=== PATIENT | male | born 1955 | race Caucasian/White ===

== ENCOUNTER 2016-06-11 09:01 | Inpatient (IN) | payer BC ==
[2016-06-11] VITALS (9 sets, daily range): BP systolic 99–129; BP diastolic 66–76; PULSE 85–97; TEMP 36.9–37.3; O2SAT 90–98; Ht 188 cm; Wt 98.1 kg
[~2016-06-11] VITALS: Ht 188 cm; Wt 98.1 kg
[~2016-06-11 09:01] MED LIST: ASPI1POW10 PO; CLON0.5T3 PO; CPR500 PO; ESCI1TAB10 PO; VALS-10 PO
[2016-06-11] MEDS ORDERED: DIPH1TAB PO (09:19)
--- NOTE | 2016-06-11 09:44 | EMERGENCY ROOM VISIT NOTE ---
History Report prepared by Marisol: Lexi Bond Under the Supervision of: Dr. Isabel Aguirre D.O. First contact with patient: 09:22 Chief Complaint: GI ASSESSMENT Stated Complaint: BLOOD IN STOOL Nursing Triage Summary: Pt c/o black and red bloody BM last night. Feeling week. Believes he fainted once. Cramping. 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 The patient states that he felt like he was going to have a normal bowel movement, but his stool was liquid and black in color. There were also some bright red spots. Afterwards, he felt very lightheaded and weak trying to get back to bed. He did not lose consciousness. Throughout the night, he had 3 more episodes of bloody diarrhea, most recently about 3 hours ago. He has never had similar episodes of bloody stool. He also complains that he was having cramps in the back of his thighs and calves intermittently throughout the night which kept him awake. Currently, he continues to feel weak and shaky, but denies any other complaints. He was feeling well throughout the day yesterday. The patient states that he takes salicylate powder at least 4 times a week, usually more, and occasionally up to 3 times in a day. He has a history of migraine headaches and the salicylate powder was the only thing that would help. The patient's only other significant GI history was a hospitalization for salmonella poisoning, although his current symptoms do not feel similar to that. He has had colonoscopies in the past, most recently about 2 years ago, and was told he does not need to have another for about 10 years. 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 A total of 10 systems reviewed and were otherwise negative. Past Medical & Surgical Medical Problems: (1) Hypertension (2) Melena (3) Pancolitis Family History FH: lung cancer Hypertension Social History Smoking Status: Never Smoker Alcohol Use: occasionally Drug Use: none Housing Status: lives with significant other Occupation Status: employed Current/Historical Medications Scheduled Clonazepam (Klonopin), 0.5 MG PO HS Diphenhydramine Hcl (Benadryl Allergy), 50 MG PO HS Escitalopram Oxalate (Lexapro), 20 MG PO DAILY Valsartan/Hctz (Diovan Hct 320MG/12.5MG), 1 TAB PO DAILY Scheduled PRN Rypilql-Orteakllizmsd-Tygxefdj (Goodys Extra Strength), 1 DOSE PO UD PRN for Headache Allergies Coded Allergies: No Known Allergies (Unverified , 06/11/16) Physical Exam Vital Signs Date Time Temp Pulse Resp B/P Pulse Ox O2 Delivery O2 Flow Rate FiO2 06/11/16 12:43 98 Room Air 06/11/16 11:02 104/74 06/11/16 09:06 36.3 126 18 105/70 98 Room Air Physical Exam HEENT: Head - normocephalic and atraumatic Pupils are equal, round, and reactive to light. Extraocular eye muscles are intact, and sclera are anicteric. Nose - moist nasal mucosa without discharge. Mouth - moist buccal mucosa. Oropharynx is nonerythematous and there is no tonsillar exudate or edema noted. Neck: Supple; no JVD, nuchal rigidity, cervical lymphadenopathy. Heart: Regular rate and rhythm. There is a normal S1 and S2 with no murmurs, clicks, or gallops appreciated. Lungs: Clear to auscultation bilaterally with no wheezes, rales, or rhonchi. Abdomen: Soft, completely nontender, nondistended, with good bowel sounds. There are no palpable pulsatile masses or hepatosplenomegaly. There is no guarding, rigidity, or rebound noted. Extremities: No evidence of cyanosis, clubbing, or edema. There are easily palpable peripheral pulses. Skin: Slightly pale and diaphoretic with good turgor and no rashes. Medical Decision & Procedures Laboratory Results Test 06/11/16 10:00 Prothrombin Time 10.7 SECONDS (9.0-12.0) Prothromb Time International Ratio 1.0 (0.9-1.1) Activated Partial Thromboplast Time 23.1 SECONDS (21.0-31.0) Partial Thromboplastin Ratio 0.9 Total Bilirubin 0.3 mg/dl (0.2-1) Direct Bilirubin < 0.1 mg/dl (0-0.2) Aspartate Amino Transf (AST/SGOT) 15 U/L (15-37) Alanine Aminotransferase (ALT/SGPT) 32 U/L (12-78) Alkaline Phosphatase 71 U/L (45-117) Total Creatine Kinase 155 U/L (39-308) Creatine Kinase MB 2.7 ng/ml (0.5-3.6) Creatine Kinase MB Ratio 1.7 (0-3.0) Total Protein 6.5 gm/dl (6.4-8.2) Albumin 3.6 gm/dl (3.4-5.0) Hepatitis C Antibody Screen NEG (NEG) Laboratory results per my review. Medications Administered Medications (Trade) Dose Ordered Sig/Cali Route Start Time Stop Time Status Last Admin Dose Admin Sodium Chloride (Nss 1000ml) 1,000 ml @ 999 mls/hr Q1H1M STAT IV 06/11/16 12:41 06/11/16 13:41 DC 06/11/16 13:04 999 MLS/HR ECG Indication: weakness Rate (beats per minute): 106 Rhythm: sinus tachycardia Findings: no acute ischemic change, no ectopy ED Course 0930: The patient was evaluated in room B10. A complete history and physical examination were performed. Nursing notes and previous electronic medical records were reviewed. IV lock was established and labs were drawn as above. 1120: Upon reevaluation, the patient was resting comfortably and has not had any more bloody bowel movements. However, the patient states that when he does stand up, he feels extremely lightheaded and near syncopal. I discussed findings and results with the patient. He verbalized agreement of the treatment plan. 1136: I spoke with Dr. Kennedy of the [facility] Hospitalist Service. The patient will be evaluated for further management and care. Medical Decision The patient is a 60 year old male who presents to the ED with a black and bloody stool. Differential diagnosis includes melena, upper GI bleeding, lower GI bleeding, anemia. Labs: White count of 11.8, hemoglobin 14.6, platelet count 261, coags are normal , BUN of 40, creatinine 1.3, glucose 128, LFTs are normal. This is a 60-year-old male patient who presents with melena and bright red bloody stools for the past 12 hours. The patient did have a near syncopal event earlier in the night. He still feels lightheaded upon standing. The patient admits to using aspirin/caffeine powder a couple of times a day for quite some time. This is used treat headaches. The salicylate use could be contributed to the patient's GI bleeding. I discussed the case with the [facility] hospitalist and they will evaluate for further management. Consults Time Called: 1125 Consulting Physician: Dr. Kennedy of the [facility] Hospitalist Service Returned Call: [phone] Kennedy of the [facility] Hospitalist Service. The patient will be evaluated for further management and care. Impression Primary Impression: Upper GI bleed Additional Impression: Near syncope Scribe Attestation The scribe's documentation has been prepared under my direction and personally reviewed by me in its entirety. I confirm that the note above accurately reflects all work, treatment, procedures, and medical decision making performed by me. Departure Information Dispostion Being Evaluated By Hospitalist Referrals Perez Mark M.D. (PCP) Patient Instructions My [facility] Health Problem Qualifiers
[2016-06-11 10:08] LABS: BASO % 0.2 %; BASO ABS # 0.02 K/uL (0-0.2); COMPLETE YES; EOS % 0.3 %; HEMATOCRIT 41.5 % (42-52); IG% 0.7 %; LYMPH % 18.5 %; LYMPH ABS # 2.19 K/uL (1.2-3.4); MEAN CELL VOLUME 95.8 fL (80-100); MEAN CORPUSCULAR HEMOGLOBIN 33.7 pg (25-34); MEAN CORPUSCULAR HGB CONC 35.2 g/dl (32-36); MEAN PLATELET VOLUME 9.4 fL (7.4-10.4); MONO % 6.2 %; NEUT % 74.1 %; PLATELET COUNT 261 K/uL (130-400); RED BLOOD COUNT 4.33 M/uL (4.7-6.1); WHITE BLOOD COUNT 11.85 K/uL (4.8-10.8)
[2016-06-11 10:22] LABS: PARTIAL THROMBOPLASTIN RATIO 0.9; PROTHROMBIN TIME (PATIENT) 10.7 SECONDS (9.0-12.0)
[2016-06-11 10:25] LABS: ALT/SGPT 32 U/L (12-78); BLOOD UREA NITROGEN 40 mg/dl (7-18); BUN/CREATININE RATIO 30.7 (10-20); CALCIUM 8.9 mg/dl (8.5-10.1); CARBON DIOXIDE 22 mmol/L (21-32); CHLORIDE 105 mmol/L (98-107); GLUCOSE 128 mg/dl (70-99); POTASSIUM 4.1 mmol/L (3.5-5.1); SODIUM 137 mmol/L (136-145)
[2016-06-11 10:28] LABS: ALKALINE PHOSPHATASE 71 U/L (45-117); AST/SGOT 15 U/L (15-37)
[2016-06-11 12:11] LABS: CKMB/CK RATIO 1.7 (0-3.0)
[2016-06-11] MEDS ORDERED: SODIUM CHLORIDE 0.9% 1000ML 1,000 ML IV STA (12:41)
[2016-06-11] MEDS ORDERED: PANTOprazole INJ 80 MG in DEXTROSE 5% 100ML IV SCH (13:30)
--- NOTE | 2016-06-11 13:42 | History and Physical ---
History & Physical Date & Time of Service: Jun 11, 2016 at 13:14 Chief Complaint: Blood In Stool Primary Care Physician: Perez Mark M.D. History of Present Illness Source: patient, family (sheyance), clinic records, hospital records Mr. Vallejo is a 60 y/o male with PMHx of HTN, Sleep Disorder, Migraine Headaches, Adult Stress Disorder, Salmonella Dysentery (Jan 2016) who presents to the ED for melanotic stools and BRBPR that started at midnight of 06/11/16. He reports feeling his normal self yesterday and went to bed without any acute complaints. At midnight he awoke because he felt the need to move his bowels and had loose tarry black BM with bright red block in the toilet water as well as interspersed in the melena. As he got up from the toilet and walked back to bed he was extremely lightheaded and felt like he was going to faint. He is not sure if he passed out when he was on the bed but did not fall in the attempts to reach the bed. He later had 3 more similar appearing melanotic stool with bright red blood. Each trip to the bathroom he developed the same symptoms of lightheadedness. Associated dyspnea on exertion. Aggravated with movement and walking but all associated symptoms relieved with rest. Associated generalized fatigue and shakiness. Denies chest pain. Reports utilizing Goody's powder for migraine headaches that he uses frequently. States he sometimes uses it 4 times a week and up to 3 times a day as this is the only thing that helps his headaches. Will use intermittent Ibuprofen but states it is not common to use. Denies further OTC medications or NSAIDs. Is not on any anti-coagulation therapy. Treated for Salmonella dysentery in January 2016 but reports complete resolution of those symptoms prior to today's onset. Last colonoscopy approx. 2 years ago without abnormalities per patient but he states he has had hemorrhoids in the past. Denies known history of PUD, bleeding disorders, or liver conditions. States he drinks 1-2 glasses of wine most days of the week. In the ED, patient is tachycardic in 120s but have reduced per my exam at 100. BPs stable but hypotensive at 104/74. Hgb noted at 14.6 with BUN 40. Initial cardiac enzymes negative. Discussed case with Dr. Inverso as patient is in NAD however hemodynamically unstable and symptomatic with exertion. Plan for possible EGD and will be admitted to telemetry for further evaluation and care. Past Medical/Surgical History Medical Problems: (1) Hypertension Status: Chronic Family History FH: lung cancer Hypertension Social History Smoking Status: Never Smoker Smokeless Tobacco Use: No Alcohol Use: occasionally (1-2 glasses of wine most days of week) Drug Use: none Occupational Status: employed Multi-Drug Resistant Organisms History of MDRO: No Allergies Coded Allergies: No Known Allergies (Unverified , 06/11/16) Home Medications Scheduled Clonazepam (Klonopin), 0.5 MG PO HS Diphenhydramine Hcl (Benadryl Allergy), 50 MG PO HS Escitalopram Oxalate (Lexapro), 20 MG PO DAILY Valsartan/Hctz (Diovan Hct 320MG/12.5MG), 1 TAB PO DAILY Scheduled PRN Kmmeozd-Owfcmjabmppff-Rozkluvy (Goodys Extra Strength), 1 DOSE PO UD PRN for Headache Review of Systems Constitutional: + weakness (generalized), No chills, No fever Respiratory: + dyspnea on exertion, No cough, No dyspnea at rest, No hemoptysis , No shortness of breath Cardiovascular: No chest pain Abdomen: + GI bleeding, + diarrhea, No nausea, No pain, No vomiting Musculoskeletal: No calf pain, No swelling Genitourinary - Male: No dysuria Endocrine: + fatigue Hematologic / Lymphatic: No abnormal bleeding/bruising, No clotting problems Integumentary: No rash Physical Exam Vital Signs Date Time Temp Pulse Resp B/P Pulse Ox O2 Delivery O2 Flow Rate FiO2 06/11/16 12:43 98 Room Air 06/11/16 11:02 104/74 06/11/16 09:06 36.3 126 18 105/70 98 Room Air General Appearance: WD/WN, no apparent distress Head: normocephalic, atraumatic Eyes: sclerae normal ENT: hearing grossly normal Neck: supple, no JVD, trachea midline Respiratory/Chest: lungs clear, normal breath sounds, no respiratory distress, no accessory muscle use Cardiovascular: no gallop, no murmur, + tachycardia Abdomen/GI: normal bowel sounds, non tender, soft Back: normal inspection Extremities/Musculoskelatal: no calf tenderness, normal capillary refill, no pedal edema Neurologic/Psych: alert, oriented x 3 Skin: no rash, + pallor Diagnostics Laboratory Results Results Past 24 Hours Test 06/11/16 10:00 Range/Units White Blood Count 11.85 4.8-10.8 K/uL Red Blood Count 4.33 4.7-6.1 M/uL Hemoglobin 14.6 14.0-18.0 g/dL Hematocrit 41.5 42-52 % Mean Corpuscular Volume 95.8 80-100 fL Mean Corpuscular Hemoglobin 33.7 25-34 pg Mean Corpuscular Hemoglobin Concent 35.2 32-36 g/dl Platelet Count 261 130-400 K/uL Mean Platelet Volume 9.4 7.4-10.4 fL Neutrophils (%) (Auto) 74.1 % Lymphocytes (%) (Auto) 18.5 % Monocytes (%) (Auto) 6.2 % Eosinophils (%) (Auto) 0.3 % Basophils (%) (Auto) 0.2 % Neutrophils # (Auto) 8.79 1.4-6.5 K/uL Lymphocytes # (Auto) 2.19 1.2-3.4 K/uL Monocytes # (Auto) 0.74 0.11-0.59 K/uL Eosinophils # (Auto) 0.03 0-0.5 K/uL Basophils # (Auto) 0.02 0-0.2 K/uL RDW Standard Deviation 46.8 36.4-46.3 fL RDW Coefficient of Variation 13.3 11.5-14.5 % Immature Granulocyte % (Auto) 0.7 % Immature Granulocyte # (Auto) 0.08 0.00-0.02 K/uL Prothrombin Time 10.7 9.0-12.0 SECONDS Prothromb Time International Ratio 1.0 0.9-1.1 Activated Partial Thromboplast Time 23.1 21.0-31.0 SECONDS Partial Thromboplastin Ratio 0.9 Sodium Level 137 136-145 mmol/L Potassium Level 4.1 3.5-5.1 mmol/L Chloride Level 105 98-107 mmol/L Carbon Dioxide Level 22 21-32 mmol/L Anion Gap 10.0 3-11 mmol/L Blood Urea Nitrogen 40 7-18 mg/dl Creatinine 1.30 0.60-1.40 mg/dl Est Creatinine Clear Calc Drug Dose 75.0 ml/min Estimated GFR () 68.3 Estimated GFR (Non- 58.9 BUN/Creatinine Ratio 30.7 10-20 Random Glucose 128 70-99 mg/dl Calcium Level 8.9 8.5-10.1 mg/dl Total Bilirubin 0.3 0.2-1 mg/dl Direct Bilirubin < 0.1 0-0.2 mg/dl Aspartate Amino Transf (AST/SGOT) 15 15-37 U/L Alanine Aminotransferase (ALT/SGPT) 32 12-78 U/L Alkaline Phosphatase 71 45-117 U/L Total Creatine Kinase 155 39-308 U/L Creatine Kinase MB 2.7 0.5-3.6 ng/ml Creatine Kinase MB Ratio 1.7 0-3.0 Troponin I < 0.015 0-0.045 ng/ml Total Protein 6.5 6.4-8.2 gm/dl Albumin 3.6 3.4-5.0 gm/dl EKG Sinus tachycardia Inferior infarct , age undetermined Abnormal ECG When compared with ECG of 21-JAN-2016 18:50, No significant change was found Impression Assessment and Plan Mr. Vallejo is a 60 y/o male with PMHx of HTN, Sleep Disorder, Migraine Headaches, Adult Stress Disorder, Salmonella Dysentery (Jan 2016) who presents to the ED for melanotic stools and BRBPR that started at midnight of 06/11/16. In the ED, patient is tachycardic in 120s but have reduced per my exam at 100. BPs stable but hypotensive at 104/74. Hgb noted at 14.6 with BUN 40. Discussed case with Dr. Pacheco as patient is in NAD however hemodynamically unstable and symptomatic with exertion. Plan for possible EGD and will be admitted to telemetry for further evaluation and care. Melena and BRBPR: - Assessment - tachycardic with hypotension and LUNA -- Hgb at 14.6 in setting of probable compensation with BUN at 40 suggesting upper GI - Type and Cross x 1 unit and hold - Serial H&H - NSS 1 L bolus now - will reassess need for further bolus - Protonix bolus with gtt - NPO - Consult GI - discussed case with Dr. Pacheco -- Possible scope today if no source found probable colonoscopy 06/12 HTN: - Assessment - currently hypotensive will hold home meds DVT Prophylaxis: - TEDs/SCDs - No chemical prophylaxis in setting of GI bleed Code Status: - FULL RESUSCITATION Level of Care Telemetry Advanced Directives Existing Advance Directive: No Existing Living Will: No Existing Power of Combiner Operator: No Resuscitation Status FULL RESUSCITATION VTE Prophylaxis VTE Risk Assessment Done? Y/N: Yes Risk Level: Moderate Given or contraindicated: T.E.D. Stockings, SCD's Note Attending Attestation: Pt seen/examined, chart reviewed, and care plan d/w JAY Rolon. I agree w/ the guy components of her admission documentation. 60yo male with HTN and hospital admission in 2016 for salmonella enteritis who presented today with 24 hours of melena stools mixed with some bright red bleeding per rectum. He was near-syncopal last evening in the midst of passing a large melena stool. Upon ER presentation today he was tachycardic, BP was low -normal, but Hb was 14. Risk factors for GI bleeding include daily etoh consumption and frequent use of NSAIDs (goodie powders for chronic headaches). He also mentioned he had had some dyspnea with exertion in the last 24 hours but no chest pain. PMH, PSH, allergies, meds, sochx, famhx, ros - reviewed following fluid bolus - BP improved, HR is closer to 100, o2 sats normal exam gen - NAD skin - no pallor heart - borderline tachy, s1, s2 lungs - CTA b/l abd - soft, NT, ND, BS+, no HSM ext - no edema labs - BUN 40 Cr 1.3 Hb 14.6 EKG - inferior Q waves, no ST changes A/P: 60yo male with GI bleeding. Stool is mainly melena but also mixed with bright red blood. This could be a lara upper GI bleed, or distal small bowel bleed, given the mixed melena/BRB. Agree with IVF, protonix drip, NPO status, and urgent GI consultation. Serial H/H's. BMP in am. With respect to the dyspnea - I don't believe that a Hb of 14 would lead to dyspnea. His EKG shows inferior Q's. Will recommend outpatient cardiac w/u following this admission. Husam Martin MD
[2016-06-11] MEDS ORDERED: ONDANSETRON INJ 2 MG/ML 2 ML VIAL IV PRN (13:45)
[2016-06-11] MEDS: SODIUM CHLORIDE 0.9% 1000ML 1,000 ML IV SCH (15:00)
[2016-06-11 15:50] LABS: HEMATOCRIT 39.2 % (42-52)
[2016-06-11] MEDS: PANTOprazole INJ 40 MG in DEXTROSE 5% 100ML IV SCH ×2 (16:03→22:11)
[2016-06-11] MEDS ORDERED: LIDOCAINE HCL 2% 2 ML VIAL (20MG/ML) ONE (18:21)
[2016-06-11] MEDS ORDERED: PROPOFOL IV EMULSION 10 MG/ML 20 ML VIAL IV ONE (18:21)
[2016-06-11] MEDS ORDERED: GLYCOPYRROLATE INJ 0.2 MG/ML VIAL ONE ×2 (18:21→19:03)
[2016-06-11] MEDS ORDERED: DEXAMETHASONE SOD INJ 4 MG/ML VIAL ONE (18:21)
[2016-06-11] MEDS ORDERED: NEOSTIGMINE METHYLSULFATE 5 MG/5 ML SYR ONE ×2 (18:21→19:03)
[2016-06-11] MEDS ORDERED: ONDANSETRON INJ 2 MG/ML 2 ML VIAL ONE (18:21)
[2016-06-11] MEDS ORDERED: FENTANYL CITRATE INJ 50 MCG/1 ML 2 ML VIAL ONE (18:22)
[2016-06-11] MEDS ORDERED: MIDAZOLAM HCL 1 MG/ML 2ML VIAL ONE (18:22)
[2016-06-11] MEDS ORDERED: ROCURONIUM BROMIDE 10 MG/ML 5 ML VIAL ONE (18:43)
--- NOTE | 2016-06-11 19:20 | GI REPORT ---
Procedure Date: 06/11/2016 6:19 PM Procedure: Upper GI endoscopy Indications: Hematochezia, Melena Medicines: General Anesthesia Complications: No immediate complications. Estimated blood loss: Minimal. Estimated Blood Loss: Estimated blood loss was minimal. Procedure: Pre-Anesthesia Assessment: - Prior to the procedure, a History and Physical was performed, and patient medications and allergies were reviewed. The patient's tolerance of previous anesthesia was also reviewed. The risks and benefits of the procedure and the sedation options and risks were discussed with the patient. All questions were answered, and informed consent was obtained. Prior Anticoagulants: The patient has taken no previous anticoagulant or antiplatelet agents. ASA Grade Assessment: II - A patient with mild systemic disease. After reviewing the risks and benefits, the patient was deemed in satisfactory condition to undergo the procedure. After obtaining informed consent, the endoscope was passed under direct vision. Throughout the procedure, the patient's blood pressure, pulse, and oxygen saturations were monitored continuously. The scope was introduced through the mouth, and advanced to the third part of duodenum. The upper GI endoscopy was accomplished without difficulty. The patient tolerated the procedure well. Findings: The upper third of the esophagus and middle third of the esophagus were normal. LA Grade B (one or more mucosal breaks greater than 5 mm, not extending between the tops of two mucosal folds) esophagitis with no bleeding was found 38 to 40 cm from the incisors. Patchy moderate inflammation characterized by erythema was found in the gastric body, in the gastric antrum and in the prepyloric region of the stomach. Biopsies were taken with a cold forceps for histology. Verification of patient identification for the specimen was done by the physician and template reproduction technician using the patient's name and medical record number. Few non-bleeding superficial gastric ulcers with no stigmata of bleeding were found in the gastric antrum and in the prepyloric region of the stomach. The largest lesion was 10 mm in largest dimension. One non-bleeding cratered duodenal ulcer with no stigmata of bleeding was found in the duodenal bulb. The lesion was 10 mm in largest dimension. The 2nd part of the duodenum and 3rd part of the duodenum were normal. The cardia and gastric fundus were normal on retroflexion. Retained gastric contents are not identified on this exam. Impression: - Normal upper third of esophagus and middle third of esophagus. - LA Grade B reflux esophagitis. - Acute gastritis. Biopsied. - Non-bleeding gastric ulcers with no stigmata of bleeding. - One non-bleeding duodenal ulcer with no stigmata of bleeding. - Normal 2nd part of the duodenum and 3rd part of the duodenum. Recommendation: - Return patient to [facility] for [facility] care. - Clear liquid diet. - Use Prilosec (omeprazole) 20 mg PO BID. - No aspirin, ibuprofen, naproxen, or other non-steroidal anti-inflammatory drugs. - Await pathology results. MD Shalom Bhatti MD 06/11/2016 7:19:05 PM This report has been signed electronically. Note Initiated On: 06/11/2016 6:19 PM
--- NOTE | 2016-06-11 19:44 | Anesthesiology Progress Note ---
Anesthesia Post Op Note Date & Time Jun 11, 2016 at 19:44 Vital Signs Pain Intensity: 0 Vital Signs Past 12 Hours Date Time Temp Pulse Resp B/P Pulse Ox O2 Delivery O2 Flow Rate FiO2 06/11/16 19:33 94 16 06/11/16 19:33 94 16 95 06/11/16 19:28 90 16 06/11/16 19:28 90 16 110/64 100 06/11/16 19:23 96 12 97/65 100 06/11/16 19:23 96 12 06/11/16 19:18 102 15 119/77 100 06/11/16 19:18 101 15 06/11/16 19:13 107 18 06/11/16 19:13 36.9 106 19 134/78 100 Mask 10 06/11/16 19:13 107 18 117/78 100 06/11/16 16:00 98 Room Air 06/11/16 15:44 37.0 93 18 121/76 95 06/11/16 14:46 36.9 97 18 129/76 97 Room Air 06/11/16 12:58 109/79 06/11/16 12:43 98 Room Air 06/11/16 11:02 104/74 06/11/16 09:06 36.3 126 18 105/70 98 Room Air Notes Mental Status: alert / awake / arousable, participated in evaluation Pt Amnestic to Procedure: Yes Nausea / Vomiting: adequately controlled Pain: adequately controlled Airway Patency, RR, SpO2: stable & adequate BP & HR: stable & adequate Hydration State: stable & adequate Anesthetic Complications: no major complications apparent Pt doing well.
[2016-06-11 21:21] LABS: HEMATOCRIT 37.5 % (42-52)
[2016-06-11] MEDS ORDERED: NURSING VERBAL MED ORDER ONE (22:30)
[2016-06-11] MEDS: CLONAZEPAM 0.5 MG TAB PO PRN (23:11)
[2016-06-12] VITALS (7 sets, daily range): BP systolic 105–132; BP diastolic 67–75; PULSE 88–102; TEMP 36.5–37.1; O2SAT 92–97
--- NOTE | 2016-06-12 00:42 | GASTROINTESTINAL CONSULTATION ---
DATE OF CONSULTATION: 06/11/2016 CHIEF COMPLAINT: Melena and bright red blood per rectum. HISTORY OF PRESENT ILLNESS: I was contacted by the Emergency Room earlier today regarding this 60-year-old white male who reports a mixture of bright red blood per rectum and melena that essentially painless in nature, starting at midnight last night. The patient presented to the Emergency Room with these symptoms and had experienced and urged to have a bowel movement with the above-mentioned presentation. The patient also had some features of lightheadness after the bowel movement. It is unclear if he had actual syncopal episode, however. In the Emergency Room, the patient was found to be mildly tachycardiac and slightly hypotensive. The patient denies any prior GI bleeding event and has no history of peptic ulcer disease, colitis. He was seen by our service for a salmonella enterocolitis approximately 4 months ago and this was treated and had resolved completely until the symptoms of last night reflecting GI bleeding. His hemoglobin on admission was 14.6, but an elevated BUN. PAST MEDICAL HISTORY: Includes hypertension and headaches for which he uses acetaminophen, aspirin and caffeine powder twice daily. There has been no abdominal pain or weight loss. FAMILY HISTORY: Significant for a lung cancer and hypertension. SOCIAL HISTORY: The patient denies tobacco and drinks perhaps 1-2 glasses of wine several days week. The patient is . ALLERGIES: He has no known drug allergies. CURRENT HOME MEDICATIONS: Include clonazepam, valsartan/hydrochlorothiazide, Lexapro and Benadryl. In addition to the Goody's extra strength powder that he takes for headaches, which can be several times weekly. FAMILY HISTORY: Noncontributory and was reviewed with the patient. REVIEW OF SYSTEMS: Otherwise noncontributory except for mentioned by 14-point exam above. The patient denies any odynophagia, dysphagia, hematemesis or coffee ground emesis. He denies dysuria or hematuria, weight loss, significant joint aches, chest pain, shortness of breath, palpitations; disorders of endocrine, skin, hair or gait. PHYSICAL EXAMINATION: VITAL SIGNS: Today in the Emergency Room, the patient presented with afebrile 36.3, pulse 126, respirations 18, blood pressure 105/70. GENERAL: The patient was given IV fluids and placed on a PPI. At the present time in his room, the patient is awake, alert and oriented and resting comfortably in bed. His is present with him. HEENT: The patient's oral mucosa is moist. NECK: There is no cervical or supraclavicular adenopathy. I do not appreciate thyromegaly. HEART: Normal S1, S2. LUNGS: Clear to auscultation without rales, rhonchi or wheezes. ABDOMEN: Soft, flat, nontender, nondistended with normoactive bowel sounds, no rebound or guarding. I do not appreciate hepatosplenomegaly. EXTREMITIES: Without clubbing, cyanosis or edema. RECTAL: Deferred. There is no evidence of rebound or guarding or abdominal bruits. ADDITIONAL LABORATORY STUDIES: Shows a normal INR of 1.0. Platelets of 261,000, white count 11.8 with a hemoglobin and hematocrit of 14.6 and 41.5. The MCV is normal at 95. His BUN and creatinine are 40 and 1.3. Liver function tests show normal bilirubin, transaminases, alkaline phosphatase and cardiac enzymes are unremarkable for a myocardial injury. IMPRESSION AND PLAN: The patient with new onset of melena and bright red blood per rectum with a near syncopal or perhaps syncopal episode earlier this morning. The patient presented to the Emergency Room and was slightly tachycardiac and minimally hypotensive. However, his hemoglobin was in the normal range and on repeat was found to be approximately 13. Differential diagnoses I suspected represents an upper bleed and may be non-steroidal anti-inflammatory drugs related due to use of aspirin. In addition, a peptic ulcer disease may be a culprit. There is no strong history of suspicion of liver disease. I made the following recommendations: Will perform an upper endoscopy this evening to exclude upper sources. If these are unrevealing, then consideration for colonoscopy either tomorrow or as an outpatient if his hemoglobin remains stable. He should avoid the use of aspirin products and would continue on PPI therapy IV until the upper endoscopy is completed and adjustments to medications can be made. All questions answered. Thank you for allowing me to participate in this patient's care.
[2016-06-12] MEDS: PANTOprazole INJ 40 MG in DEXTROSE 5% 100ML IV SCH ×2 (00:46→04:52)
[2016-06-12] MEDS: SODIUM CHLORIDE 0.9% 1000ML 1,000 ML IV SCH (01:39)
[2016-06-12 06:17] LABS: COMPLETE YES; HEMATOCRIT 36.7 % (42-52); IG% 0.6 %; LYMPH % 13.2 %; LYMPH ABS # 1.59 K/uL (1.2-3.4); MEAN CELL VOLUME 96.8 fL (80-100); MEAN CORPUSCULAR HGB CONC 34.1 g/dl (32-36); MEAN PLATELET VOLUME 9.5 fL (7.4-10.4); NEUT % 81.2 %; PLATELET COUNT 251 K/uL (130-400); RED BLOOD COUNT 3.79 M/uL (4.7-6.1); WHITE BLOOD COUNT 12.03 K/uL (4.8-10.8)
[2016-06-12 06:35] LABS: BUN/CREATININE RATIO 16.2 (10-20); CALCIUM 8.1 mg/dl (8.5-10.1); CREATININE 1.2 mg/dl (0.60-1.40); POTASSIUM 4.2 mmol/L (3.5-5.1)
[2016-06-12] MEDS: PANTOprazole SOD 40 MG TAB PO SCH ×2 (11:30→20:33)
[2016-06-12] MEDS: ESCITALOPRAM OXALATE 20 MG TAB PO SCH (11:30)
[2016-06-12] MEDS ORDERED: NURSING VERBAL MED ORDER ONE (12:15)
[2016-06-12 17:31] LABS: HEMATOCRIT 35.5 % (42-52)
--- NOTE | 2016-06-12 18:13 | PROGRESS NOTE ---
DATE: 06/12/2016 REASON FOR EVALUATION: Gastric and duodenal ulcers with bleeding. HISTORY OF PRESENT ILLNESS: The patient is a 60-year-old who has been taking a lot of aspirin for headaches and presented with melena and anemia. EGD yesterday showed a small gastric ulcer and a larger duodenal ulcer, but both were clean based and did not require endoscopic intervention. His BUN creatinine ratio on admission was 30.7. His H\T\H are relatively stable at 12 and 35.5 today. PHYSICAL EXAMINATION: VITAL SIGNS: Blood pressure is 106/67, pulse is 102. Room air saturations 97%. GENERAL: The patient reports no abdominal pain currently. IMPRESSION: The patient has gastric and duodenal ulcers most likely induced by aspirin. I recommend that we test him for H. pylori which could be done as an outpatient. He will need to continue a proton pump inhibitor for two months with followup thereafter. We can see him as an outpatient if the patient will be discharged soon.
--- NOTE | 2016-06-12 21:49 | Progress Note ---
Subjective Date of Service: Jun 12, 2016. Subjective Pt evaluation today including: conversation w/ patient, physical exam, chart review, lab review Pain: denies abd pain PO Intake: tolerating clears Voiding: no voiding problems tele overnight with persistent sinus tachycardia despite no further drop in H/H patient denies pain, anxiety, withdrawal from etoh, etc no stool since yesterday no nausea or emesis anxious to go home Problem List Medical Problems: (1) Chronic tachycardia Status: Acute (2) Colitis Status: Acute (3) Near syncope Status: Acute (4) Tachycardia Status: Acute (5) Upper GI bleed Status: Acute Review of Systems Respiratory: No dyspnea on exertion, No shortness of breath Cardiac: No PND, No chest pain, No orthopnea Abdomen: No nausea, No pain, No vomiting Objective Vital Signs Date Time Temp Pulse Resp B/P Pulse Ox O2 Delivery O2 Flow Rate FiO2 06/12/16 19:32 36.8 97 16 132/74 96 Room Air 06/12/16 16:05 Room Air 06/12/16 15:41 37.1 102 16 106/67 97 Room Air 06/12/16 12:02 Room Air 06/12/16 08:05 Room Air 06/12/16 07:03 36.7 88 18 117/75 94 Room Air 06/12/16 04:00 93 Room Air 06/12/16 03:48 36.5 92 16 105/67 93 Room Air 06/12/16 00:07 36.8 88 16 108/67 92 Room Air 06/12/16 00:01 92 Room Air Physical Exam General Appearance: no apparent distress ENT: pharynx normal Neck: no JVD Respiratory/Chest: lungs clear, no respiratory distress, no accessory muscle use Cardiovascular: no gallop, no murmur, + tachycardia Abdomen: normal bowel sounds, non tender, soft, no organomegaly Extremities: no pedal edema Laboratory Results Last 24 Hours Test 06/12/16 05:48 06/12/16 17:05 White Blood Count 12.03 K/uL Red Blood Count 3.79 M/uL Hemoglobin 12.5 g/dL 12.0 g/dL Hematocrit 36.7 % 35.5 % Mean Corpuscular Volume 96.8 fL Mean Corpuscular Hemoglobin 33.0 pg Mean Corpuscular Hemoglobin Concent 34.1 g/dl Platelet Count 251 K/uL Mean Platelet Volume 9.5 fL Neutrophils (%) (Auto) 81.2 % Lymphocytes (%) (Auto) 13.2 % Monocytes (%) (Auto) 5.0 % Eosinophils (%) (Auto) 0.0 % Basophils (%) (Auto) 0.0 % Neutrophils # (Auto) 9.77 K/uL Lymphocytes # (Auto) 1.59 K/uL Monocytes # (Auto) 0.60 K/uL Eosinophils # (Auto) 0.00 K/uL Basophils # (Auto) 0.00 K/uL RDW Standard Deviation 48.1 fL RDW Coefficient of Variation 13.6 % Immature Granulocyte % (Auto) 0.6 % Immature Granulocyte # (Auto) 0.07 K/uL Sodium Level 140 mmol/L Potassium Level 4.2 mmol/L Chloride Level 106 mmol/L Carbon Dioxide Level 24 mmol/L Anion Gap 10.0 mmol/L Blood Urea Nitrogen 19 mg/dl Creatinine 1.20 mg/dl Est Creatinine Clear Calc Drug Dose 81.2 ml/min Estimated GFR () 75.2 Estimated GFR (Non- 64.9 BUN/Creatinine Ratio 16.2 Random Glucose 151 mg/dl Calcium Level 8.1 mg/dl Magnesium Level 2.3 mg/dl Assessment and Plan 60yo male with: 1. upper GI bleeding with resulting acute blood loss anemia - 2nd to esophagitis, gastric ulcers, duodenal ulcer - still mildly tachycardic, and H/H have trended down modestly today (despite no further melena stool). can stop protonix drip. change to protonix 40mg PO BID. I discussed with him observing him overnight due to the tachycardia and modest H /H drop. He is agreeable. Plan - keep telemetry on cbc in am d/c fluids follow vitals cont PPI BID 2. etoh consumption - chronic - could his mild tachycardia be from withdrawal? follow. 3. recent LUNA - will recommend work-up as outpatient for such. 4. DVT proph - SCDs. 5. FEN - advance diet to fulls. BMP stable. stop fluids. watch again overnight Continued [facility] stay due to: other (GI bleed) Discharge planning: home
[2016-06-12] MEDS: CLONAZEPAM 0.5 MG TAB PO PRN (22:03)
[2016-06-13 00:51] VITALS: BP 118/75; PULSE 89; TEMP 36.7; O2SAT 95
[2016-06-13 05:32] VITALS: BP 111/74; PULSE 85; TEMP 36.5; O2SAT 95
[2016-06-13 06:20] LABS: HEMATOCRIT 32.8 % (42-52); MEAN CELL VOLUME 98.5 fL (80-100); MEAN CORPUSCULAR HEMOGLOBIN 33.6 pg (25-34); MEAN CORPUSCULAR HGB CONC 34.1 g/dl (32-36); MEAN PLATELET VOLUME 9.3 fL (7.4-10.4); PLATELET COUNT 220 K/uL (130-400); RED BLOOD COUNT 3.33 M/uL (4.7-6.1)
[2016-06-13 07:07] LABS: BUN/CREATININE RATIO 15.8 (10-20); CALCIUM 8.1 mg/dl (8.5-10.1); CREATININE 1.1 mg/dl (0.60-1.40); THYROID STIMULATING HORMONE 1.26 uIu/ml (0.300-4.500)
[2016-06-13 07:08] LABS: POTASSIUM 3.5 mmol/L (3.5-5.1)
[2016-06-13 07:26] VITALS: BP 120/76; PULSE 83; TEMP 36.6; O2SAT 97
[2016-06-13] MEDS: ESCITALOPRAM OXALATE 20 MG TAB PO SCH (08:44)
[2016-06-13] MEDS: PANTOprazole SOD 40 MG TAB PO SCH (08:44)
[2016-06-13 11:46] VITALS: BP 124/78; PULSE 83; TEMP 36.8; O2SAT 96
[2016-06-13 11:53] LABS: HEMATOCRIT 34.7 % (42-52)
[2016-06-13] MEDS ORDERED: VALS320T PO (13:04)
[2016-06-13] MEDS ORDERED: FRRS300 PO (13:04)
[2016-06-13] MEDS ORDERED: PRT40 PO (13:04)
--- NOTE | 2016-06-13 13:12 | Discharge Instructions ---
Discharge Instructions Admission Reason for Admission: GI bleeding Discharge Discharge Diagnosis / Problem: Upper GI bleeding due to esophagitis + gastric/ duodenal ulcers Discharge Goals Goal(s): Learn about illness, Diagnostic testing, Therapeutic intervention Activity Recommendations Activity Limitations: as noted below Lifting Limitations: gradually increase as tolerated (over the next 7 days) Exercise/Sports Limitations: gradually increase as tolerated (over the next 7 days; would NOT perform any heavy exertional activity for the next 3 days during your recovery period ) May Resume Sexual Activity: after follow-up appointment Shower/Bathe: no limitations Driving or Machine Use: no limitations . Instructions / Follow-Up Instructions / Follow-Up From Dr. Martin - 1. For your esophagitis / ulcers - * TAKE protonix 40mg twice daily (AM and at bedtime) * STOP all aspirin, goodie powders, BC powders, alleve, motrin, ibuprofen, naprosyn; tylenol IS ok to take for discomforts/pain * STOP all forms of alcohol for at least 2 weeks * AVOID fried foods, spicy foods, fast foods, red sauces, orange juice, acidic foods, excessive caffeine intake - all of these things can worsen esophagitis, ulcers, etc. 2. For your anemia (low red cells, which occurred due to the bleeding) - * take chel-ufd-nbgffvj ferrous sulfate 325mg twice daily for 1 month * this is an iron product * it can cause constipation and make your stools look dark * have your family doctor check your blood counts in 3-4 days to ensure they are stable and you are not bleeding 3. For your high blood pressure - * at least until the time of hospital follow-up STOP your diovan/HCTZ * START 1/2 tablet of diovan (valsartan) once daily; new prescription given * as you have seen your blood pressures in the hospital have been normal or low ; resuming your old medication will make the BP go down too low at this time * this is not unusual in the setting of a recent GI bleed * don't throw away your old BP medication; you may need it in the future 4. Return to [facility] if you experience ANY shortness of breath, bright red blood in the stool, black stools, abdominal pain, vomiting blood, dizziness, etc. 5. Please speak to your family doctor about a stress test for your heart. Current Hospital Diet Patient's current hospital diet: AHA Diet (Heart Healthy) Discharge Diet Recommended Diet: Regular Diet Procedures Procedures Performed: Esophagogastroduodenoscopy ("EGD") - showed esophagitis (irritation of lining of esophagus), stomach ulcers, and duodenal ulcer. Pending Studies Studies pending at discharge: yes List of pending studies: H. pylori test (a bacterium that can sometimes cause stomach ulcers) Medical Emergencies . Who to Call and When: Medical Emergencies: If at any time you feel your situation is an emergency, please call 911 immediately. . Non-Emergent Contact Non-Emergency issues call your: Primary Care Provider Call Non-Emergent contact if: temperature is above 100.5, your pain is concerning you, you have any medication questions . . "Provider Documentation" section prepared by Husam Martin. VTE Core Measure Inpt VTE Proph given/why not?: Yanira Fabian, SCD's
--- NOTE | 2016-06-20 22:42 | Discharge Summary ---
Discharge Summary Admission Date: Jun 11, 2016 at 12:51 Discharge Date: Jun 13, 2016 Discharge Disposition: Home Principal Diagnosis: upper GI bleed Problems/Secondary Diagnoses: 1. mild acute blood loss anemia - discharge hemoglobin 11.8 2. acute gastritis 3. esophagitis 4. gastric ulcers 5. duodenal ulcer 6. hypertension 7. acute kidney injury - resolved; admission Cr 1.3; discharge Cr 1.1 8. anxiety disorder Procedures: EGD - Impression: - Normal upper third of esophagus and middle third of esophagus. - LA Grade B reflux esophagitis. - Acute gastritis. Biopsied. - Non-bleeding gastric ulcers with no stigmata of bleeding. - One non-bleeding duodenal ulcer with no stigmata of bleeding. Consultations: gastroenterology - Shalom Pacheco MD Medication Reconciliation New Medications: Ferrous Sulfate (Ferrous Sulfate) 325 Mg Tab 325 MG PO BID, #60 0 Refills Valsartan (Diovan) 320 Mg Tab 0.5 TAB PO DAILY for 30 Days, #30 TAB 1 Refill Pantoprazole (Pantoprazole Sodium) 40 Mg Tab 40 MG PO BID, #60 TAB 1 Refill Continued Medications: Clonazepam (Klonopin) 0.5 Mg Tab 0.5 MG PO HS, TAB Diphenhydramine Hcl (Benadryl Allergy) 25 Mg Tab 50 MG PO HS Escitalopram Oxalate (Lexapro) 20 Mg Tab 20 MG PO DAILY, TAB Discontinued Medications: Owofpnp-Efxrbjasiqedj-Akixlpio (Goodys Extra Strength) 1 Pow Pow 1 DOSE PO UD PRN for Headache TAKE PER PACKAGE DIRECTIONS Valsartan/Hctz (Diovan Hct 320MG/12.5MG) 1 Tab Tab 1 TAB PO DAILY, TAB Discharge Exam Physical Exam: General Appearance: WD/WN, no apparent distress ENT: pharynx normal Neck: no JVD Respiratory/Chest: lungs clear, no respiratory distress, no accessory muscle use Cardiovascular: regular rate, rhythm, no gallop, no murmur, normal peripheral pulses Abdomen / GI: normal bowel sounds, non tender, soft, no organomegaly Extremities: no pedal edema Neurologic/Psychiatric: alert, oriented x 3 Skin: no rash Hospital Course HISTORY OF PRESENT ILLNESS: Mr. 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 He reported feeling his normal self yesterday and went to bed without any acute complaints. At midnight he awoke because he felt the need to move his bowels and had loose tarry black BM with bright red blood in the toilet water as well as interspersed in the melena. As he got up from the toilet and walked back to bed he was extremely lightheaded and felt like he was going to faint. He is not sure if he passed out when he was on the bed but did not fall in the attempts to reach the bed. He later had 3 more similar appearing melanotic stool with bright red blood. Each trip to the bathroom he developed the same symptoms of lightheadedness. Associated dyspnea on exertion. Aggravated with movement and walking but all associated symptoms relieved with rest. Associated generalized fatigue and shakiness. Denied chest pain. He reported utilizing Goody powders fairly frequently for migraine headaches. Stated he sometimes had used it 4 times a week and up to 3 times a day as this is the only thing that helps his headaches. Has used intermittent Ibuprofen as well. Denied further OTC medications or NSAIDs. Is not on any anti-coagulation therapy. Last colonoscopy was approx. 2 years ago and was without abnormalities per patient but he stated he has had hemorrhoids in the past. Denied known history of PUD, bleeding disorders, or liver conditions. Stated he drinks 1-2 glasses of wine most days of the week. In the ED, patient was tachycardic in 120s with BP of 104/74. Hgb noted at 14.6 with BUN 40. Initial cardiac enzymes negative. HOSPITAL COURSE: Following admission the patient remained hemodynamically stable. He was made NPO and started on IVF along with protonix infusion. He underwent urgent E[facility] by Dr[facility] Shal[facility]. He had multiple endoscopic findings including esophagitis, gastritis, gastric ulcers, and a single duodenal ulcer. Some or all of these findings were the likely culprits for his acute upper GI bleeding, and it was felt that much of this was due to chronic NSAID use. He experienced a mild acute blood loss anemia during his stay but did not require PRBCs. Discharge hemoglobin was 11.8. He was restarted on a clear liquid diet and advanced without difficulty following his EGD. At discharge he will stop all NSAID use, take protonix 40mg BID, limit alcohol consumption, and follow-up with his PCP within 5 days to recheck a CBC. He should also have follow-up with [facility] within 6 weeks. Other issues addressed - 1. hypertension - due to his acute blood loss anemia he did NOT require his full array of BP medications while hospitalized. He was asked to change to diovan ONLY at discharge with close PCP follow-up to ensure proper BP control. 2. acute kidney injury - 2nd to GI bleeding with acute blood loss anemia. Discharge Cr was 1.1. 3. acute blood loss anemia - he will need iron supplementation for a period of time (1-2 months). Close PCP follow-up is also recommended. Total Time Spent: Greater than 30 minutes This includes examination of the patient, discharge planning, medication reconciliation, and communication with other providers. Discharge Instructions Please refer to the electronic Patient Visit Report (Discharge Instructions) for additional information. Follow-Up 1. see Dr. Mark, PCP, within 5 days of discharge 2. see [facility] in 6-8 weeks Additional Copies To Perez Mark M.D.; Ok Astudillo M.D.; Shalom Pacheco M.D.
== END 2016-06-13 14:20 | disposition home or self-care (01) | DRG 378 ==
LOC: ENRESERVTM → ENRESERVDT → C.EDB 09:02 → C.2T 12:51
PROVIDERS: ADMIT Internal Medicine; ATTEND Internal Medicine
PROC: 0DB68ZX Excision of Stomach, Via Natural or Artificial Opening Endoscopic, Diagnostic (ICD-10-PCS; principal; 2016-06-11 08:30)
DX: K29.01 Acute gastritis with bleeding (principal); D62 Acute posthemorrhagic anemia; T39.015A Adverse effect of aspirin, initial encounter; K21.0 Gastro-esophageal reflux disease with esophagitis; R00.0 Tachycardia, unspecified; I10 Essential (primary) hypertension; Z79.899 Other long term (current) drug therapy; Z79.82 Long term (current) use of aspirin

== ENCOUNTER → 2016-09-22 | Outpatient (CLI) | payer BC ==
[~2016-09-22] MED LIST changes: -ASPI1POW10 PO; -CPR500 PO; +DIPH1TAB87 PO; +FRRS300 PO; +PRT40 PO; -VALS-10 PO; +VALS320T PO
--- NOTE | 2016-09-22 11:36 | DIAGNOSTIC IMAGING REPORT ---
CHEST 2 VIEWS ROUTINE CLINICAL HISTORY: J98.4 Restrictive lung [id number] chronic obstructive change COMPARISON STUDY: 07/05/2014 FINDINGS: Chronic pelvic bibasilar atelectasis. Diaphragms smooth. Lungs otherwise are clear. No evidence for cardiac enlargement. Calcifications are sharp. IMPRESSION: Chronic basilar change. No acute process. Electronically signed by: Jeff Pitts M.D. 09/22/2016 11:34 AM Dictated Date/Time: 09/22/2016 11:34 AM
== END | disposition home or self-care (01) ==
LOC: C.RAD1850 11:15
PROVIDERS: ATTEND Internal Medicine Pulmonary Disease
DX: J98.4 Other disorders of lung (principal)

== ENCOUNTER 2019-01-25 11:09 | Observation (INO) ==
--- OUTSIDE RECORDS SUMMARY | 2019-01-25 11:11 | External Medical Summary | Continuity of Care Document ---
:1955 Author Name Immanuel Mcneal, Provider Address Unavailable Unavailable , Care Team Providers Name Role Phone Perez [email or web address] Candido DAMIAN Unavailable Unavailable Unavailable Unavailable Unavailable Assessments Assessed Problems:H/O umbilical hernia repair Problems Decreased libido (799.81) (R68.82) Hyperlipidemia (272.4) (E78.5) Hyperactive airway disease (493.90) (J45.909) Fatigue (780.79) (R53.83) Nontropical sprue (579.0) (K90.0) Restrictive lung disease (518.89) (J98.4) Other dysfunctions of sleep stages or arousal from sleep (30 7.47) Insomnia (780.52) (G47.00) Need for hepatitis C screening test (V73.89) (Z11.59) H/O umbilical hernia repair (V15.29) (Z98.890) Umbilical hernia (553.1) (K42.9) Shortness of breath (786.05) (R06.02) Adult situational stress disorder (308.9) (F43.20) Dyspnea on exertion (786.09) (R06.09) Hypertension (401.9) (I10) Abnormal EKG (794.31) (R94.31) Sinus tachycardia (427.89) (R00.0) Chronic headaches (784.0) (R51) Allergies and Adverse Reactions No Known Drug Allergies (Allergy) Medications Valsartan 320 MG Oral Tablet; TAKE 1 TABLET DAILY. Start: 15-Jun-2016 Refills: 0 Escitalopram Oxalate 20 MG Oral Tablet; TAKE 1 TABLET DAILY. Fredis Mark Start: 26-Jul-2016 Quantity: 90 Refills: 3 clonazePAM 0.5 MG Oral Tablet; TAKE 1 TABLET BY MOUTH AT BEDTIME NEEDED Fredis Mark Start: 28-May-2011 Quantity: 30 Refills: 1 Pantoprazole Sodium 40 MG Oral Tablet De layed Release; take 1 tablet by mouth twice a day Fredis Mark Start: 12-Aug-2016 Quantity: 60 Refills: 5 Losartan Potassium 25 MG Oral Tablet; TAKE 1 TABLET DAILY. Start: 09-Jun-2018 Refills: 0 30 Tablet Bottle Procedures History of Pilonidal Cyst Resection Stat us: Completed History of Tonsillectomy With Adenoidectomy Status: Completed History of Umbilical Hernia Repair Statu s: Completed 29-Mar-2018 0:00 Immunizations Tdap (Adacel) On: 05-Jan-2012 10:04 Lot #: [id number], [employer] Influenza On: 09-Feb-2012 Lot #: [id number], Influenza On: 10-Mar-2013 14:21 Lot #: [id number], [employer] Influenza On: 06-Apr-2015 Zostavax [id number] UNT/0.65ML Subcutaneous Solution Reconstitute d On: 06-Apr-2015 Influenza On: 19-Mar-2016 16:18 Lot #: [id number], [employer] Family History Unknown Family Member Family history of Hypertension (V17.49) Status: Active Comments: Family History Family history of Chronic Obstructive Status: Active Co mments: Family History Pulmonary Disease natural daughter Family history of Family Health Status Child 1 Daughter Stat us: Active Family history of Family Health Status Child 2 Son Status: A ctive Mother Family history of Dementia Status: Active Father Family history of Bladder Cancer (V16.52) Status: Active Brother Family history of Thyroid Cancer Status: Active Social History - Smoking Status Never smoker Plan of Treatment Planned Observations Planned Goals not documented Results No Known Results Results not documented Encounters Appointment; Cristopher Mobley M.D. 28-Apr-2018 9:00 Encounter Diagnosis: Problem not documented Appointment; Surg PR[facility], [facility] 11-Apr-2018 8:30 Encounter Diagnosis: Problem not documented Appointment; Cristopher Mobley M.D. 29-Mar-2018 12:00 Encounter Diagnosis: Problem not documented Appointment; Cristopher Mobley M.D. 23-Mar-2018 10:00 Encounter Diagnosis: Problem not documented Appointment; Cristopher Mobley M.D. 09-Jun-2018 10:00 Encounter Diagnosis: Problem not documented
[2019-01-25] MEDS ORDERED: ASPIRIN CHEW 324 MG PO STA (11:26)
--- NOTE | 2019-01-25 11:39 | XRay Report ---
XR chest 1V portable CLINICAL HISTORY: Atypical chest pain COMPARISON STUDY: 09/22/2016 FINDINGS: The cardiac and mediastinal contours are normal. There is no evidence of focal pulmonary co nsolidation. There is no evidence of failure. No pleural effusions are visualized.[ IMPRESSION: No active disease in the chest. Electronically signed by: Angel Hernandez M.D. 01/25/2019 11:37 AM
[2019-01-25 12:05] LABS: Basophils # (auto) 0.03 K/uL (0-0.2); Basophils % (auto) 0.4 %; Eosinophils # (auto) 0.11 K/uL (0-0.5); Eosinophils % (auto) 1.6 %; Hematocrit (blood only) 47.2 % (42-52); Hemoglobin 16.3 g/dL (14.0-18.0); Immature Granulocytes # (auto) 0.03 K/uL (0.00-0.02); Immature Granulocytes % (auto) 0.4 %; Lymphocytes # (auto) 2.16 K/uL (1.2-3.4); Lymphocytes % (auto) 31.5 %; Mean Corpuscular Hgb Conc 34.5 g/dL (32-36); Mean Corpuscular Volume 96.7 fL (80-100); Mean Platelet Volume 9.6 fL (7.4-10.4); Monocytes % (auto) 7.3 %; Neutrophils # (auto) 4.03 K/uL (1.4-6.5); Neutrophils % (auto) 58.8 %; Platelet Count 190 K/uL (130-400); RDW Coefficient of Variation 13.6 % (11.5-14.5); RDW Standard Deviation 48.3 fL (36.4-46.3); Red Blood Count 4.88 M/uL (4.7-6.1); White Blood Count 6.86 K/uL (4.8-10.8)
[2019-01-25 12:15] LABS: Partial Thromboplastin Ratio 0.9; Partial Thromboplastin Time 25.7 Seconds (21.0-31.0); Prothrombin Time 10.5 Seconds (9.0-12.0)
[2019-01-25 12:22] LABS: Alanine Aminotransferase 73 U/L (12-78); Albumin Level 3.7 gm/dl (3.4-5.0); Aspartate Aminotransferase 39 U/L (15-37); BUN Creatinine Ratio 10.6 (10-20); Blood Urea Nitrogen 15 mg/dl (7-18); Calcium 8.6 mg/dl (8.5-10.1); Carbon Dioxide 26 mmol/L (21-32); Chloride 106 mmol/L (98-107); Creatinine Clr Calc Pharmacy 70.1 ml/min; Est GFR (African American) 61.1; Est GFR (Non-African American) 52.7; Glucose 102 mg/dl (70-99); Potassium 3.8 mmol/L (3.5-5.1); Sodium 140 mmol/L (136-145)
[2019-01-25 12:27] LABS: Albumin Globulin Ratio 1.1 (0.9-2); Alkaline Phosphatase 113 U/L (45-117); Bilirubin,Total 0.5 mg/dl (0.2-1); Globulin 3.3 gm/dl (2.5-4.0); Troponin I < 0.015 ng/ml (0-0.045)
--- NOTE | 2019-01-25 17:21 | Emergency Department Note ---
Entered by Keith Sales acting as a scribe for Marcello Heredia DO History of Present Illness General Chief complaint: Chest Pain Stated complaint: CHEST PAIN,SOB,NOSE BLEED Source: patient History of Present Illness Onset (ago): week(s) 1 Location: chest (central) Pain Consistency: + intermittent Quality: + other (chest pain) Associated symptoms: + nausea/vomiting (+nausea; -vomiting), + shortness of breath and + other (+nosebleed; -leg swelling; -abdominal pain ) The patient is a 63 year old male who presents to the Emergency Room with complaints of intermittent central chest pain over the past week. The patient n otes each episode will last for about half an hour. The patient also notes of shortness of breath, nausea, and a nosebleed from his left nostril that would not stop for 45 minutes. The patient does not note of anything that makes the chest pain worse or better. The patient denies swelling in legs or abdominal pain. The patient denies experiencing anything similar in the past, but the patient notes history of depression and anxiety. The patient notes he had a stress test done 6 years ago. The patient denies history of clots in lungs or legs. Home Medications Home Medications Medication Instructions Recorded Confirmed Type atorvastatin 40 mg PO QAM 03/25/18 01/25/19 History clonazepam 0.5 mg PO HS 03/25/18 01/25/19 History losartan-hydrochlorothiazide 1 tab PO QAM 03/25/18 01/25/19 History pantoprazole 40 mg PO BID 03/25/18 01/25/19 History fluoxetine 20 mg PO QAM 01/25/19 01/25/19 History quetiapine 25 mg PO HS 01/25/19 01/25/19 History Allergies Allergy/AdvReac Type Severity Reaction Status Date / Time No Known Allergies Allergy Verified 01/25/19 11:52 Past Med/Surg History Medical History Anxiety History of bleeding ulcers 1 YR AGO Hx of Salmonella infection 2 YRS AGO Hx of endoscopy UPPER Hx of pilonidal cyst Hyperlipidemia BORDERLINE Hypertension Surgical History History of tonsillectomy and adenoidectomy Hx of colonoscopy Social History Preferred Language: Armenian Communication Ability: Effective Employee Benefits Director Required: No Beliefs That Will Affect Care: None Current Living Situation: Spouse Feels Safe at Home: Yes Smoking Status: Never smoker Hx Alcohol Use: Yes Alcohol type: wine Hx Substance Use: No Review of Systems See HPI for pertinent positives & negatives. and A total of 10 systems reviewed and were otherwise negative Physical Exam Vital Signs Vital Signs - 24 hr 01/25/19 11:16 01/25/19 12:16 01/25/19 12:17 Temperature 36.8 C Temperature Source Oral Sepsis Recent Fever Within 48 Hours No Sepsis Action Taken by Nursing No Action Required Pulse Rate 105 H Pulse Rate [Left Finger] 111 H Pulse Rhythm Regular Pulse Strength Normal Respiratory Rate 20 15 Respiratory Effort / Characteristics Non-Labored Spontaneous Non-Labored Respiratory Depth Normal Normal Respiratory Pattern Regular Regular Blood Pressure 117/89 Blood Pressure [Left Arm] 140/78 Blood Pressure Mean 98 Blood Pressure Mean [Left Arm] 98 Pulse Oximetry 96 92 92 Oxygen Delivery Method Room Air Room Air Room Air 01/25/19 13:30 01/25/19 15:31 01/25/19 17:22 Temperature Temperature Source Sepsis Recent Fever Within 48 Hours Sepsis Action Taken by Nursing Pulse Rate Pulse Rate [Left Finger] 93 H 91 H 95 H Pulse Rhythm Pulse Strength Respiratory Rate 15 19 13 Respiratory Effort / Characteristics Non-Labored Non-Labored Respiratory Depth Normal Normal Respiratory Pattern Regular Regular Blood Pressure Blood Pressure [Left Arm] 130/83 144/96 H 137/95 Blood Pressure Mean Blood Pressure Mean [Left Arm] 98 112 109 Pulse Oximetry 94 94 94 Oxygen Delivery Method Room Air Room Air Room Air 01/25/19 17:23 Temperature Temperature Source Sepsis Recent Fever Within 48 Hours Sepsis Action Taken by Nursing Pulse Rate Pulse Rate [Left Finger] 84 Pulse Rhythm Pulse Strength Respiratory Rate 15 Respiratory Effort / Characteristics Non-Labored Respiratory Depth Normal Respiratory Pattern Regular Blood Pressure Blood Pressure [Left Arm] 129/86 Blood Pressure Mean Blood Pressure Mean [Left Arm] 100 Pulse Oximetry 93 Oxygen Delivery Method Room Air GENERAL: Patient is awake, alert, and in no acute distress.Patient is resting comfortably and showing no signs of anxiety EYES: The conjunctivae are clear. The pupils are round and reactive. EARS, NOSE, MOUTH AND THROAT: The nose is without any evidence of any deformity. Mucous membranes are moist.Tongue is midline NECK: The neck is nontender and supple. RESPIRATORY: Normal respiratory effort is noted. There is no evidence of wheezing rhonchi or rales to auscultation. CARDIOVASCULAR: Regular rate and rhythm noted. There no murmurs rubs or gallops normal S1 normal S2 GASTROINTESTINAL: The abdomen is soft. Bowel sounds are present in all quadrants. Abdomen is nontender. MUSCULOSKELETAL/EXTREMITIES: There is no evidence of gross deformity. Full range of motion is noted in the hips and shoulders. SKIN: There is no obvious evidence of any rash. There are no petechiae, pallor or cyanosis noted. NEUROLOGIC: Patient is awake alert and oriented x3. Strength is symmetric. Patellar reflexes are 2+ bilaterally. Course 1125: Past medical records reviewed. The patient was evaluated in room B7. A complete history and physical exam was performed. 1500: Repeat EKG and troponin was ordered. 1600: I reevaluated the patient. The patient's heart score is 3. 1625: I reevaluated the patient. The patient is not ready to go home yet. 1705: I reviewed the patient's case with Dr. Can-Aliya Schuler. Dr. Can will evaluate the patient for further management. Consultations Consultation #1: I reviewed the patient's case with Dr. Can-Aliya Schuler. Dr. Can will evaluate the patient for further management. Time: 17:05 Administered Medications Discontinued Medications Aspirin (Aspirin) 324 mg PO NOW STA Stop: 01/25/19 11:27 Last Admin: 01/25/19 12:14 Dose: 324 mg Documented by: [id number] Medical Decision Making Differential Diagnosis Etiologies such as cardiac ischemia, aortic dissection, pulmonary embolism, pneumonia, pneumothorax, musculoskeletal, infections, gastrointestinal, as well as others were entertained. Medical Records Attestation: I reviewed the patient's medical records. Home Medications Current Medication List: was personally reviewed by me Laboratory Data Attestation: I reviewed the patient's lab results. Result diagrams: 01/25/19 11:53 01/25/19 11:53 Lab Results 01/25/19 01/25/19 01/25/19 Range/Units 11:53 11:53 11:53 WBC 6.86 (4.8-10.8) K/uL RBC 4.88 (4.7-6.1) M/uL Hgb 16.3 (14.0-18.0) g/dL Hct 47.2 (42-52) % MCV 96.7 (80-100) fL MCH 33.4 (25-34) pg MCHC 34.5 (32-36) g/dL RDW Std Deviation 48.3 H (36.4-46.3) fL RDW Coeff of Sum[place] 13.6 (11.5-14.5) % Plt Count 190 (130-400) K/uL MPV 9.6 (7.4-10.4) fL Immature Gran % (Auto) 0.4 % Neut % (Auto) 58.8 % Lymph % (Auto) 31.5 % Crane % (Auto) 7.3 % Eos % (Auto) 1.6 % Baso % (Auto) 0.4 % Immature Gran # (Auto) 0.03 H (0.00-0.02) K/uL Neut # (Auto) 4.03 (1.4-6.5) K/uL Lymph # (Auto) 2.16 (1.2-3.4) K/uL Crane # (Auto) 0.50 (0.11-0.59) K/uL Eos # (Auto) 0.11 (0-0.5) K/uL Baso # (Auto) 0.03 (0-0.2) K/uL PT 10.5 (9.0-12.0) Seconds INR 1.0 (0.9-1.1) APTT 25.7 (21.0-31.0) Seconds PTT Ratio 0.9 Sodium 140 (136-145) mmol/L Potassium 3.8 (3.5-5.1) mmol/L Chloride 106 (98-107) mmol/L Carbon Dioxide 26 (21-32) mmol/L Anion Gap 8.0 (3-11) BUN 15 (7-18) mg/dl Creatinine 1.40 (0.6-1.4) mg/dl Est Cr Clr Drug Dosing 70.1 ml/min Est GFR ( Amer) 61.1 Est GFR (Non-Af Amer) 52.7 BUN/Creatinine Ratio 10.6 (10-20) Glucose 102 H (70-99) mg/dl Calcium 8.6 (8.5-10.1) mg/dl Total Bilirubin 0.5 (0.2-1) mg/dl AST 39 H (15-37) U/L ALT 73 (12-78) U/L Alkaline Phosphatase 113 (45-117) U/L Troponin I < 0.015 (0-0.045) ng/ml Total Protein 7.0 (6.4-8.2) gm/dl Albumin 3.7 (3.4-5.0) gm/dl Globulin 3.3 (2.5-4.0) gm/dl Albumin/Globulin Ratio 1.1 (0.9-2) Lipase 101 (73-393) U/L 01/25/19 Range/Units 15:25 WBC (4.8-10.8) K/uL RBC (4.7-6.1) M/uL Hgb (14.0-18.0) g/dL Hct (42-52) % MCV (80-100) fL MCH (25-34) pg MCHC (32-36) g/dL RDW Std Deviation (36.4-46.3) fL RDW Coeff of Suma (11.5-14.5) % Plt Count (130-400) K/uL MPV (7.4-10.4) fL Immature Gran % (Auto) % Neut % (Auto) % Lymph % (Auto) % Crane % (Auto) % Eos % (Auto) % Baso % (Auto) % Immature Gran # (Auto) (0.00-0.02) K/uL Neut # (Auto) (1.4-6.5) K/uL Lymph # (Auto) (1.2-3.4) K/uL Crane # (Auto) (0.11-0.59) K/uL Eos # (Auto) (0-0.5) K/uL Baso # (Auto) (0-0.2) K/uL PT (9.0-12.0) Seconds INR (0.9-1.1) APTT (21.0-31.0) Seconds PTT Ratio Sodium (136-145) mmol/L Potassium (3.5-5.1) mmol/L Chloride (98-107) mmol/L Carbon Dioxide (21-32) mmol/L Anion Gap (3-11) BUN (7-18) mg/dl Creatinine (0.6-1.4) mg/dl Est Cr Clr Drug Dosing ml/min Est GFR ( Amer) Est GFR (Non-Af Amer) BUN/Creatinine Ratio (10-20) Glucose (70-99) mg/dl Calcium (8.5-10.1) mg/dl Total Bilirubin (0.2-1) mg/dl AST (15-37) U/L ALT (12-78) U/L Alkaline Phosphatase (45-117) U/L Troponin I < 0.015 (0-0.045) ng/ml Total Protein (6.4-8.2) gm/dl Albumin (3.4-5.0) gm/dl Globulin (2.5-4.0) gm/dl Albumin/Globulin Ratio (0.9-2) Lipase (73-393) U/L Imaging Data Radiologist's Impression: Radiology results as stated below per my review and the radiologist's interpretation: XR chest 1V portable CLINICAL HISTORY: Atypical chest pain COMPARISON STUDY: 09/22/2016 FINDINGS: The cardiac and mediastinal contours are normal. There is no evidence of focal pulmonary consolidation. There is no evidence of failure. No pleural effusions are visualized.[ IMPRESSION: No active disease in the chest. Electronically signed by: Angel Hernandez M.D. 01/25/2019 11:37 AM ECG Data Attestation: I personally reviewed and interpreted this ECG as follows: Indication: chest pain Rate (beats per minute): 105 Rhythm: sinus tachycardia Findings: + other (no acute ST segments ); no PAC, no PVC and no ectopy Comparison ECG Date: from (03/23/18) Change: the following changes noted (increased rate, otherwise no change ) Additional Comments: REPEAT EKG (1500): NSR 89, No ectopy, No acute ST segment Blood Pressure Blood Pressure Findings: Elevated blood pressure Blood Pressure Disposition: elevated BP felt to be situational MDM Narrative The patient is a 63-year-old male who presented to the emergency department for an evaluation of chest discomfort. The patient describes chest discomfort as well as dyspnea on exertion. The patient's initial EKG did not show any acute ischemic changes. He was treated with aspirin in the emergency department. The patient was reevaluated multiple times. I discussed the patient's laboratory and radiographic studies with him. He had serial EKGs as well as serial t roponin measurements. I discussed the limitations of the emergency department work-up for chest pain with him. Ultimately he was not comfortable with outpatient follow-up so I discussed his case with the on-call [facility] hospitalist. They have agreed to evaluate the patient in the emergency department for further management and disposition. The patient was feeling much better on subsequent reevaluation and was pain-free. Impression & Plan Chest pain, Breath, shortness, Epistaxis Discharge Plan Visit Data Chief Complaint: Chest Pain Stated Complaint: CHEST PAIN,SOB,NOSE BLEED ED Provider: Marcello Heredia Discharge Problem: Chest pain, Breath, shortness, Epistaxis Patient Disposition: Being Evaluated by Hospitalist Forms Stand Alone Forms: Call Back Authorization, [facility] Prescriptions Prescriptions: No Action quetiapine 25 mg tablet 25 mg PO HS RF: 0 fluoxetine 20 mg capsule 20 mg PO QAM RF: 0 atorvastatin 40 mg Tablet 40 mg PO QAM RF: 0 clonazepam 0.5 mg Tablet 0.5 mg PO HS RF: 0 pantoprazole 40 mg Tablet,Delayed Release (Dr/Ec) 40 mg PO BID RF: 0 losartan-hydrochlorothiazide 100-12.5 mg Tablet 1 tab PO QAM RF: 0 Referrals Referrals: Cb Gerber MD [Primary Care Provider] - Discharge Problem: Chest pain Qualifiers: Chest pain type: unspecified Qualified Code(s): R07.9 - Chest pain, unspecified The scribe's documentation has been prepared under my direction and personally reviewed by me in its entirety. I confirm that the note above accurately reflects all work, treatment, procedures, and medical decision making performed by me.
[2019-01-25] MEDS ORDERED: ACETAMINOPHEN 325 MG TAB PO PRN (21:32)
[2019-01-25] MEDS ORDERED: QUETIAPINE FUMARATE 25 MG TABLET PO SCH (21:32)
[2019-01-25] MEDS ORDERED: POLYETHYLENE (MIRALAX) 17 GM PACK PO PRN (21:32)
[2019-01-25] MEDS ORDERED: clonazePAM 0.5 MG TAB PO SCH (21:32)
[2019-01-25] MEDS ORDERED: ZOLPIDEM TARTRATE 5 MG TAB PO PRN (21:32)
--- NOTE | 2019-01-25 22:17 | History & Physical Report ---
Date of Service January 25, 2019 Assessment & Plan (1) Chest pain: Admit to inpatient on telemetry for observation Vital signs every 4 hours Trend troponin x3 Follow EKG intensity if any changes Echocardiogram Consider consulting cardiology if any abnormality DVT prophylaxis patient is ambulatory, had melena in the past sensitive to Lovenox We will hold Lovenox at this time increase ambulation 3 times daily, SCDs and ABDOUL anderson Full code Present on Admission?: Yes (2) Epistaxis: Resolving continue monitoring, Present on Admission?: Yes (3) Hypertension: Continue home medicine: Losartan/hydrochlorothiazide Continue monitoring blood pressure Present on Admission?: Yes (4) Melena: Patient denies melena at this time Fecal occult blood pending Present on Admission?: Yes (5) Hyperlipidemia: Atorvastatin 40 mg p.o. every morning Started aspirin 81 Present on Admission?: Yes (6) Depression: Stable, continue fluoxetine 20 mg p.o. every morning and clonazepam 0.5 mg p.o. nightly Present on Admission?: Yes History of Present Illness Chief Complaint: Chest pain Primary Care Provider: Cb Gerber MD Patient is a 63 years old male with past medical history of hypertension, melena, pancolitis, who presents to the emergency room with a of intermittent central chest pain for the past week and shortness of breath. Patient said that yesterday chest pain lasted approximately 3 hours. Patient was taking his regular medication but noted that nothing makes it better. Patient denies fever chills chest pain shortness of breath sweating swelling of legs abdominal pain frequency urgency dysuria hematuria and melena at this time. Labs are reviewed: Showed white blood cell of 6.86, hemoglobin 16.3, hematocrit 47.2, platelets 190, PT 10.5, INR 1, APTT 25.7. Sodium 140, potassium 3.8, chloride 106, BUN 15, creatinine 1.4, GFR 52.7, AST 39, ALT 73, troponin negative x2. Chest x-ray no active disease in the chest. EKG normal sinus rhythm. Possible anterior infarct age undetermined-V2 through V5. Decision was made to admit patient for observation on telemetry and follow-up 3 troponins to rule out acute coronary syndrome. Allergies Allergy/AdvReac Type Severity Reaction Status Date / Time No Known Allergies Allergy Verified 01/25/19 11:52 Home Medications Home Medications Medication Instructions Recorded Confirmed Type atorvastatin 40 mg PO QAM 03/25/18 01/25/19 History clonazepam 0.5 mg PO HS 03/25/18 01/25/19 History losartan-hydrochlorothiazide 1 tab PO QAM 03/25/18 01/25/19 History pantoprazole 40 mg PO BID 03/25/18 01/25/19 History fluoxetine 20 mg PO QAM 01/25/19 01/25/19 History quetiapine 25 mg PO HS 01/25/19 01/25/19 History Past Med/Surg History Medical History Anxiety History of bleeding ulcers 1 YR AGO Hx of Salmonella infection 2 YRS AGO Hx of endoscopy UPPER Hx of pilonidal cyst Hyperlipidemia BORDERLINE Hypertension Surgical History History of tonsillectomy and adenoidectomy Hx of colonoscopy Social History Preferred Language: Danish Communication Ability: Effective Home Health Clinical Supervisor Required: No Beliefs That Will Affect Care: None Current Living Situation: Spouse Other Information That Helps Us Care for You: No Feels Safe at Home: Yes Safety Concerns: Feels Safe At This Time Smoking Status: Never smoker Do You Dip or Chew Tobacco: No ; Second Hand Exposure: No ; Hx Alcohol Use: Yes Alcohol type: wine Hx Substance Use: No Review of Systems Review of Systems: All systems reviewed & are unremarkable except as noted in HPI & below Physical Exam Constitutional: WD/WN, vitals as above well developed Eyes: PERRL, conjunctivae normal, anicteric sclerae ENMT: external ear and nose normal, oropharynx normal Neck: trachea midline, no thyromegaly Respiratory: normal respiratory effort, lungs clear to auscultation Cardiovascular: RRR, no murmur, no edema Musculoskeletal: no cyanosis or clubbing, extremities motor strength 5/5 Skin: no rashes, warm and dry Neurologic: patellar DTR's 2+ bilat, sensation intact Results & Data Vital Signs (Past 12 Hours) Vital Signs Temp Pulse Pulse Resp BP BP Pulse Ox 01/25/19 21:32 36.7 C 89 18 174/105 H 97 01/25/19 21:11 86 20 126/78 98 01/25/19 19:05 87 20 130/88 97 01/25/19 18:22 82 14 127/91 96 01/25/19 17:23 84 15 129/86 93 01/25/19 17:22 95 H 13 137/95 94 01/25/19 15:31 91 H 19 144/96 H 94 01/25/19 13:30 93 H 15 130/83 94 01/25/19 12:17 111 H 15 140/78 92 01/25/19 12:16 92 01/25/19 11:16 36.8 C 105 H 20 117/89 96 Code Status & VTE Plan Code Status Full code VTE Prophylaxis Plan VTE Prophylaxis will be ordered: No PG Care Time/CCT Total # of Minutes Spent Total Time Spent with Patient: Total time spent is greater than 50% in coordination of care (as documented) at patient's floor/unit and/or counseling patient: (1) Chest pain Chest pain type: unspecified Qualified Code(s): R07.9 - Chest pain, unspecified
[2019-01-25] MEDS: PANTOprazole 40 MG TAB PO SCH (22:23)
[2019-01-26 03:56] LABS: Mean Corpuscular Hgb Conc 34.7 g/dL (32-36); Mean Platelet Volume 10.3 fL (7.4-10.4); Nucleated RBC # (auto) 0.05 K/uL (0-0); Nucleated RBC % (auto) 0.7 %; Platelet Count 177 K/uL (130-400)
[2019-01-26 04:19] LABS: Basophils # (auto) 0.03 K/uL (0-0.2); Basophils % (auto) 0.4 %; Eosinophils # (auto) 0.16 K/uL (0-0.5); Eosinophils % (auto) 2.3 %; Hematocrit (blood only) 46.1 % (42-52); Immature Granulocytes # (auto) 0.02 K/uL (0.00-0.02); Immature Granulocytes % (auto) 0.3 %; Lymphocytes # (auto) 2.19 K/uL (1.2-3.4); Lymphocytes % (auto) 30.8 %; Mean Corpuscular Volume 97.7 fL (80-100); Monocytes # (auto) 0.62 K/uL (0.11-0.59); Monocytes % (auto) 8.7 %; Neutrophils # (auto) 4.08 K/uL (1.4-6.5); Neutrophils % (auto) 57.5 %; RDW Coefficient of Variation 13.7 % (11.5-14.5); RDW Standard Deviation 48.8 fL (36.4-46.3); Red Blood Count 4.72 M/uL (4.7-6.1)
[2019-01-26 04:21] LABS: Alanine Aminotransferase 63 U/L (12-78); Albumin Level 3.3 gm/dl (3.4-5.0); BUN Creatinine Ratio 11.2 (10-20); Blood Urea Nitrogen 16 mg/dl (7-18); Calcium 8.3 mg/dl (8.5-10.1); Carbon Dioxide 30 mmol/L (21-32); Chloride 104 mmol/L (98-107); Creatinine Clr Calc Pharmacy 64.5 ml/min; Est GFR (African American) 58.1; Est GFR (Non-African American) 50.1; Glucose 103 mg/dl (70-99); Sodium 140 mmol/L (136-145)
[2019-01-26 04:22] LABS: Alkaline Phosphatase 94 U/L (45-117); Bilirubin,Total 0.5 mg/dl (0.2-1); Chol HDL Ratio 3; Cholesterol 182 mg/dl (0-200); Globulin 3.2 gm/dl (2.5-4.0); HDL Cholesterol 63 mg/dl; LDL Cholesterol Calculated 63 mg/dl; NT Pro B Type Natriuretic Pept 16 pg/ml (0-900); Total Protein 6.5 gm/dl (6.4-8.2); Triglycerides 278 mg/dl (0-150); Troponin I < 0.015 ng/ml (0-0.045); VLDL Cholesterol 56 mg/dl
[2019-01-26 05:30] LABS: Potassium 3.5 mmol/L (3.5-5.1)
[2019-01-26] MEDS: PANTOprazole 40 MG TAB PO SCH (07:38)
[2019-01-26] MEDS ORDERED: ATORVASTATIN 40 MG TAB PO SCH (09:00)
[2019-01-26] MEDS ORDERED: LOSARTAN POTASSIUM 50 MG TAB PO SCH (09:00)
[2019-01-26] MEDS ORDERED: FLUOXETINE HCL 20 MG CAP PO SCH (09:00)
[2019-01-26] MEDS ORDERED: ASPIRIN 81 MG ECTAB PO SCH (09:00)
[2019-01-26] MEDS ORDERED: hydroCHLOROthiazide 25 MG TAB PO SCH (09:00)
[2019-01-26] MEDS ORDERED: PERFLUTREN LIPID MICROSPHERE (DEFINITY) IV ONE (13:51)
--- NOTE | 2019-01-26 21:25 | Discharge Summary ---
Date of Service January 26, 2019 Admission HPI Per Admitting Provider Patient is a 63 years old male with past medical history of hypertension, melena, pancolitis, who presents to the emergency room with a of intermittent central chest pain for the past week and shortness of breath. Patient said that yesterday chest pain lasted approximately 3 hours. Patient was taking his regular medication but noted that nothing makes it better. Patient denies fever chills chest pain shortness of breath sweating swelling of legs abdominal pain frequency urgency dysuria hematuria and melena at this time. Labs are reviewed: Showed white blood cell of 6.86, hemoglobin 16.3, hematocrit 47.2, platelets 190, PT 10.5, INR 1, APTT 25.7. Sodium 140, potassium 3.8, chloride 106, BUN 15, creatinine 1.4, GFR 52.7, AST 39, ALT 73, troponin negative x2. Chest x-ray no active disease in the chest. EKG normal sinus rhythm. Possible anterior infarct age undetermined-V2 through V5. Decision was made to admit patient for observation on telemetry and follow-up 3 troponins to rule out acute coronary syndrome. Principal Diagnosis Chest pain - Likely non-cardiac Discharge Exam Constitutional WD/WN, vitals as above well developed Eyes PERRL, conjunctivae normal, anicteric sclerae ENMT external ear and nose normal, oropharynx normal Neck trachea midline, no thyromegaly Respiratory normal respiratory effort, lungs clear to auscultation Cardiovascular RRR, no murmur, no edema Musculoskeletal no cyanosis or clubbing, extremities motor strength 5/5 Skin no rashes, warm and dry Neurologic patellar DTR's 2+ bilat, sensation intact Discharge Data Allergies Allergy/AdvReac Type Severity Reaction Status Date / Time No Known Allergies Allergy Verified 01/25/19 11:52 Consultations 01/25/19 16:47 ED Decision to Admit Stat Hospital Course (1) Chest pain: Troponins all negative. Stress treadmill test was negative as well. Determined to not be cardiac related. - Possibly vasovagal from bloody nose as the patient reported some nausea and dry heaving prior to the chest pain. Not entirely sure. Will follow up with PCP if it occurs again. (2) Epistaxis: Resolving continue monitoring, (3) Hypertension: Continue home medicine: Losartan/hydrochlorothiazide Continue monitoring blood pressure (4) Melena: Patient denies melena at this time. - No BM inpatient. Unclear to me when this occurred as the patient never mentioned this to me. (5) Hyperlipidemia: Atorvastatin 40 mg p.o. every morning Started aspirin 81 (6) Depression: Stable, continue fluoxetine 20 mg p.o. every morning and clonazepam 0.5 mg p.o. nightly Total Time Total Time Spent Total Time Spent (In Minutes): 34 Discharge Plan Discharge Items Patient Disposition: Home - Self-Care Reason For Visit: CHEST PAIN Discharge Diagnosis: Chest pain Discharge Goals: Decrease discomfort and Diagnostic testing Activity: Resume your previous activity Non-emergency contact: Primary Care Provider Call non-emergency contact if: your symptoms worsen Follow-up/Referrals: Cb Gerber MD [Primary Care Provider] - Diet: Heart Healthy Addtl Provider Instructions: Mr. Vallejo, Eleuterio were admitted to the hospital with chest pain. You had troponins and a stress test that were negative for any cardiac cause of the pain. Please try to take Tylenol and/or Tums for the next few days to try to treat the pain. Please follow up with your PCP if the pain comes back. Prescriptions: Continued quetiapine 25 mg tablet 25 mg PO HS RF: 0 fluoxetine 20 mg capsule 20 mg PO QAM RF: 0 atorvastatin 40 mg Tablet 40 mg PO QAM RF: 0 clonazepam 0.5 mg Tablet 0.5 mg PO HS RF: 0 pantoprazole 40 mg Tablet,Delayed Release (Dr/Ec) 40 mg PO BID RF: 0 losartan-hydrochlorothiazide 100-12.5 mg Tablet 1 tab PO QAM RF: 0 Stand-Alone Forms: Call Back Authorization, [facility]/Other Patient Handouts: Angina, Angina Heart Attack Recognize, Heart Risk Discharge Orders: Discharge Order (Routine); Ordered 01/26/19 Ordered By: Dandy Acosta Admission Data Admit Date/Time: 01/25/19 20:13 Attending Provider: Dandy Acosta Admit Provider: Shannan Can Primary Care Provider: Cb Gerber Other Providers: Dandy Acosta Service: Telemetry Other Interventions: Discharge Summary Assessment (RN) Last Done: 01/26/19 14:22 DC Date/Time DO NOT enter until pt leaves facility: 01/26/19 14:50
== END 2019-01-26 14:50 | disposition home or self-care (01) ==
LOC: 2E 11:09 → ED 11:09 → SUATTDRO 20:13 → 2E 21:16